=== PATIENT | male | born 1995 | race Caucasian/White ===

== ENCOUNTER 2016-10-06 23:50 | Emergency (ER) | payer SELFPAY ==
[~2016-10-06] VITALS: Ht 177.8 cm; Wt 93.0 kg
[~2016-10-06 23:50] MED LIST: CARB15DR50 LEFT EAR
[2016-10-06 23:58] VITALS: Ht 177.8 cm; Wt 93.0 kg
[2016-10-07] MEDS ORDERED: IBUPROFEN 600 MG TAB PO ONE (01:30)
[2016-10-07] MEDS ORDERED: ACETAMINOPHEN 325 MG TAB PO ONE (01:30)
[2016-10-07] MEDS ORDERED: IBUP-1542 PO (01:52)
[2016-10-07] MEDS ORDERED: PEN500 PO (01:52)
--- NOTE | 2016-10-07 02:06 | ERD ---
ER Documentation Chief Complaint Date/Time DATE: 10/07/16 TIME: 02:04 Chief Complaint shakey w/fever today HPI 21-year-old male presents here in emergency department for complaints of sore throat and fever that started today. Patient took motrin at home to help with fever. Patient's complaining of burning pain 6/10 scale, is worse upon swallowing. Patient denies any stridor or shortness breath. Patient denies any other symptoms. Patient denies any sick contacts. ROS All systems reviewed and are negative except as per history of present illness. Medications Home Meds Active Scripts Ibuprofen* (Motrin*) 600 Mg Tab, 600 MG PO Q6H Y for PAIN AND OR ELEVATED TEMP, #30 TAB Prov:JACK FRANCISCO NP 10/07/16 Penicillin V Potassium* (Penicillin V K*) 500 Mg Tab, 500 MG PO QID for 10 Days , TAB Prov:JACK FRANCISCO NP 10/07/16 Carbamide Peroxide* (Debrox*) 6.5% - 15 Ml Drops, 10 DROP LEFT EAR BID for 4 Days, BOTTLE Prov:SPENCER MANCILLA 04/19/15 Allergies Allergies: Coded Allergies: No Known Allergy (Unverified , 04/19/15) PMhx/Soc Medical and Surgical Hx: pt denies Medical Hx, pt denies Surgical Hx Hx Alcohol Use: No Hx Substance Use: No Hx Tobacco Use: No FmHx Family History: No coronary disease, No diabetes, No other Physical Exam Vitals Vital Signs Date Time Temp Pulse Resp B/P Pulse Ox O2 Delivery O2 Flow Rate FiO2 10/07/16 03:24 101.2 10/07/16 02:46 102.3 10/07/16 02:18 102.2 10/06/16 23:58 103.4 137 22 132/87 100 Physical Exam GENERAL: The patient is well developed and appropriate for usual state of health, in no apparent distress. HEENT: Atraumatic. Ears: Normal tympanic membrane, no erythema or bulging. No ear canal swelling. No ear discharge. Nose: normal nasal turbinates, no erythema or swelling. Normal nasal discharge. Throat: oropharynxErythematous with +1 tonsillar swelling and tonsillar exudates noted in bilateral tonsils.No lymphadenopathy. CHEST: Clear to auscultation bilaterally. There are no rales, wheezes or rhonchi. HEART: Regular rate and rhythm. No murmurs, clicks, rubs or gallops. No S3 or S4. ABDOMEN: Soft, nontender and nondistended. Good bowel sounds. No rebound or guarding. No gross peritonitis. No gross organomegaly or masses. No Julian sign or McBurney point tenderness. BACK: No midline or flank tenderness. EXTREMITIES: Equal pulses bilaterally. There is no peripheral clubbing, cyanosis or edema. No focal swelling or erythema. Full range of motion. Grossly neurovascularly intact. NEURO: Alert and oriented. Cranial nerves 2-12 intact. Motor strength in all 4 extremities with 5/5 strength. Sensation grossly intact. Normal speech and gait. SKIN: There is no apparent rash or petechia. The skin is warm and dry. HEMATOLOGIC AND LYMPHATIC: There is no evidence of excessive bruising or lymphedema. No gross cervical, axillary, or inguinal lymphadenopathy. Results 24 hrs Current Medications Medications (Trade) Dose Ordered Sig/Lucia Route PRN Reason Start Time Stop Time Status Last Admin Dose Admin Ibuprofen (Motrin) 600 mg ONCE ONCE PO 10/07/16 01:30 10/07/16 01:31 DC 10/07/16 01:38 Acetaminophen (Tylenol Tab) 650 mg ONCE ONCE PO 10/07/16 01:30 10/07/16 01:31 DC 10/07/16 01:38 Patient was given medicines for fever control here in the emergency department. After treatment, patient temperature improved and lower. Patient appears well and is hemodynamically stable. Procedures/MDM Medical decision making: Patient symptoms is likely consistent with acute bacterial pharyngitis, most likely strep throat. Low suspicion for peritonsillar abscess, mononucleosis, no symptoms of epiglottitis, laryngitis. No oral airway obstruction noted. No symptoms of sepsis at this time. Patient appears well and is hemodynamically stable. Patient was given for PENVK, ibuprofen,is advised to follow-up with primary care doctor in 2-3 days for reevaluation of symptoms. Patient is advised to do salt water gargles. Patient is advised to return to emergency department for worsening symptoms. Disposition: Home. Stable. Departure Diagnosis: Primary Impression: Strep throat Condition: Stable Patient Instructions: Strep Throat JACK FRANCISCO NP Oct 07, 2016 02:06
[2016-10-07 03:24] VITALS: TEMP 101.2
== END 2016-10-07 03:24 | disposition home or self-care (01) ==
LOC: FTE 23:50
DX: J02.0 Streptococcal pharyngitis (principal)
CPT/HCPCS: 99283